=== PATIENT | male | born 1940 | race Caucasian/White ===

== ENCOUNTER 2017-07-25 18:41 | Inpatient (IN) | payer OTHER ==
--- NOTE | 2017-07-25 18:55 | CPEKG ---
Heart Rate: 91 RR Interval: 659 P-R Interval: 200 QRSD Interval: 134 QT Interval: 412 QTC Interval: 508 P Breda: 72 QRS Breda: 101 T Wave Breda: -1 EKG Severity - ABNORMAL ECG - EKG Impression: SINUS RHYTHM EKG Impression: RBBB AND LPFB EKG Impression: BORDERLINE ST DEPRESSION, LATERAL LEADS Electronically Signed By: Adam Estrada 26-Jul-2017 11:36:40
[2017-07-25] MEDS ORDERED: ALBUTEROL 3 ML DEYVIAL IH ONE (19:00)
[2017-07-25] MEDS ORDERED: NS 1,000 ML IV ONE (19:01)
--- NOTE | 2017-07-25 19:06 | EDPHY ---
HPI/HX/ROS/PE/MDM Narrative: CHIEF COMPLAINT: Diarrhea, cough HISTORY OF PRESENT ILLNESS: The patient is a pleasant 76 y/o male with a history of diabetes, hypertension, a pacemaker, and vertigo arriving via EMS from [facility] for diarrhea and cough, onset 2 days ago. He has had intractable diarrhea for the past 2 days. He has associated lightheadedness with near syncope. He denies bloody stool, dark and tarry stool, vomiting, fever , difficulty breathing, chest pain, abdominal pain, or any other associated symptoms. He denies history cardiac stents, CT, or PE. He had his influenza vaccine for this season. No fever, chills, chest pain, shortness of breath, palpitations, urinary complaints, headache. REVIEW OF SYSTEMS: Aside from elements discussed in the HPI, a comprehensive 10-point review of systems was reviewed and is negative. PAST MEDICAL HISTORY: Diabetes, pacemaker (unclear indication), hypertension, vertigo SOCIAL HISTORY: Lives at [facility], retired, has two kids VITAL SIGNS: Reviewed by me GENERAL: Well-developed, well-nourished, resting comfortably in no respiratory distress. HEENT: Atraumatic. Eyes: Conjunctival injection with matting in the eyelashes bilaterally, no icterus. Mouth: moist mucous membranes. No erythema or lesions. Neck: supple with no adenopathy. LUNGS: Bibasilar rales, worse on right, right midlung field rales, no wheezes, rhonchi. CARDIAC: Regular rate and rhythm, no rubs, murmurs or gallops. ABDOMEN: Soft, nontender, nondistended, bowel sounds normal. BACK: No CVA tenderness. EXTREMITIES: No trauma. No edema. Range of motion is normal throughout. NEURO: Alert and oriented, grossly nonfocal. SKIN: Warm and dry, no rash. PSYCHIATRIC: Normal mentation, no agitation. ED Course: 12-LEAD EKG: Please see the full report in [facility]. My interpretation: ST depression laterally and T wave inversion X-ray: Chest x-ray was obtained. I viewed the images myself on the PACS system. My interpretation of the images is: normal chest. The radiologist interpretation is normal chest. The patient presents with a cough and a two day history of intractable diarrhea. He denies bloody or dark and tarry stools. He denies fever. EMS noted an abnormal EKG. Plan for chest X-ray, EKG, and labs. He will likely have to be admitted for his diarrhea as it has been uncontrollable and his room at [facility] is covered in stool. EMS has already spoken with [facility] regarding this. 1951: The patient has an elevated troponin and an abnormal EKG. Screening for sepsis is negative with normal lactic, normal WBC, no history of fever, not tachycardic or hypotensive. Labs do demonstrate hemoconcentration and suspect patient dehydrates. Influenza A positive. Patient to be admitted with influenza A, diarrhea, dehydration, positive troponin, and ekg suggesting ischemia (most likely demand). I was in contact with the hospitalist service. They agree to admit. Dr Marcelo admitting, PCU MDM: Diff dx considered included influenza, dehydration, cardiac ischemia, ischemic bowel, gastroenteritis, gastrointestinal hemorrhage, electrolyte abnormalities. - Data Points Imaging Results: CXR: Impression: Stable chest. Dictated By: Mahesh Arita MD Imaging: I viewed and interpreted images myself Laboratory Results: Laboratory Results 07/25/17 19:00 07/25/17 19:00 Medications Given: Allopurinol (Allopurinol) 300 mg PO DAILY [facility] Stop: 01/22/18 08:59 Last Admin: 07/26/17 08:47 Dose: 300 mg Amlodipine/Benazepril HCl (Lotrel 5-20 Mg Capsule) 2 each PO DAILY [facility] Stop: 01/22/18 08:59 Last Admin: 07/26/17 08:46 Dose: 2 each Aspirin (Aspirin) 81 mg PO DAILY [facility] Stop: 01/22/18 08:59 Last Admin: 07/26/17 08:45 Dose: 81 mg Cholecalciferol (Vitamin D) 2,000 units PO DAILY [facility] Stop: 01/22/18 08:59 Last Admin: 07/26/17 08:47 Dose: 2,000 units Enoxaparin Sodium (Lovenox) 40 mg SC DAILY [facility] Stop: 01/22/18 08:59 Last Admin: 07/26/17 08:44 Dose: 40 mg Guaifenesin (Mucinex) 1,200 mg PO BID [facility] Stop: 01/21/18 21:14 Last Admin: 07/26/17 22:48 Dose: 1,200 mg HCTZ/Losartan Potassium (Hyzaar 50/12.5) 2 tab PO DAILY [facility] Stop: 01/22/18 08:59 Last Admin: 07/26/17 08:46 Dose: 2 tab Lactated Ringer's (Lr) 1,000 mls @ 100 mls/hr IV CONT [facility] Stop: 01/22/18 09:59 Last Admin: 07/26/17 22:49 Dose: 1,000 mls Insulin Glargine (Lantus Syringe) 50 units SC BID [facility] Stop: 01/22/18 08:59 Last Admin: 07/26/17 22:48 Dose: 50 units Insulin Human Lispro (Humalog Lispro) 0 unit SC TIDMEAL [facility] PRN Reason: Protocol Stop: 01/22/18 07:59 Last Admin: 07/26/17 18:32 Dose: 4 units Levothyroxine Sodium (Synthroid) 50 mcg PO DAILY06 [facility] Stop: 01/22/18 05:59 Last Admin: 07/27/17 06:25 Dose: 50 mcg Metoprolol Succinate (Toprol Xl) 200 mg PO DAILY [facility] Stop: 01/22/18 14:59 Last Admin: 07/26/17 16:08 Dose: 200 mg Oseltamivir Phosphate (Tamiflu) 75 mg PO BIDMEAL [facility] Stop: 07/31/17 08:01 Last Admin: 07/26/17 18:32 Dose: 75 mg Discontinued Medications Albuterol (Proventil Neb) 3 ml IH EDNOW ONE Stop: 07/25/17 19:01 Last Admin: 07/25/17 19:39 Dose: 3 ml Sodium Chloride (Ns) 1,000 mls @ 0 mls/hr IV ONCE ONE; Wide Open PRN Reason: Protocol Stop: 07/25/17 19:02 Last Admin: 07/25/17 19:41 Dose: 1,000 mls Microbiology Results: MICROBIOLOGY 07/25/17 19:50 Blood Blood Culture - Preliminary 07/25/17 19:25 Blood Blood Culture - Preliminary 07/25/17 20:25 Urine,Clean Catch Urine Culture - Preliminary Two Wirtz Types General Initial Vital Signs: Initial Vital Signs Temperature (C) 37.8 C 07/25/17 19:09 Heart Rate 91 07/25/17 19:09 Respiratory Rate 16 07/25/17 19:09 Blood Pressure 190/95 H 07/25/17 19:09 O2 Sat (%) 95 07/25/17 19:09 O2 Delivery Mode Nasal Cannula O2 (L/minute) 2 Allergies/Adverse Reactions: No Known Allergies Allergy (Verified 07/25/17 19:09) Home Medications: Medication Instructions Recorded Allopurinol [Allopurinol 300 MG 300 mg PO DAILY 12/18/14 (RX)] Amlodipine Besylate/Benazepril 1 each PO DAILY 12/18/14 [Amlodipine-Benazepril 10-40 mg] Aspirin [Aspirin 81mg (*)] 81 mg PO DAILY 12/18/14 Cholecalciferol Vit D3 [Vitamin D3 2,000 units PO DAILY 12/18/14 (*)] Insulin Lispro [humALOG LISPRO 100 20 unit SC TIDMEAL 12/18/14 units/ml (*)] Levothyroxine [Synthroid 50 mcg 50 mcg PO DAILY06 12/18/14 (*)] Losartan/Hydrochlorothiazide 1 each PO DAILY 12/18/14 [Losartan-Hctz 100-25 mg Tab] Metoprolol Succinate Xr [Toprol Xl 200 mg PO DAILY 12/18/14 100 mg (*)] [place]-3 Ethyl Est-Lovaza [Lovaza 1 2 gm PO BID 12/18/14 gm (*)] Simvastatin [Zocor] 40 mg PO DAILY 12/18/14 Multivitamins [Multivitamin (*)] 1 each PO DAILY #30 tab 12/20/14 Meclizine HCl [Meclizine HCl 25 mg 25 mg PO TID PRN #0 tab 05/22/16 (RX,OTC)] Insulin Glargine [Lantus 100 50 units SC BID 07/25/17 UNITS/ML (*)] Departure - Departure Disposition: [facility] In[facility] Acute Clinical Impression: Elevated troponin, Hypoxia, Cough, Influenza A Diarrhea Qualifiers: Diarrhea type: unspecified type Qualified Code(s): R19.7 - Diarrhea, unspecified Condition: Fair Report Scribed for: Felisha Jauregui Report Scribed by: Isaura Goldman Date of Report: 07/25/17 Time of Report: 19:44 Physician Review and Approval Statement: Portions of this note were transcribed by a electromedical equipment technician. I personally performed a history, physical exam, medical decision making, and confirmed accuracy of information the transcribed note.
[2017-07-25 19:12] LABS: PLATELET COUNT 134 10^3/uL (150-400)
[2017-07-25 19:21] LABS: INR 0.98 (0.83-1.16); PROTIME(PATIENT) 13.2 SEC (12.0-15.0)
[2017-07-25] MEDS ORDERED: ALBUTEROL 3 ML DEYVIAL ONE (19:39)
[2017-07-25] MEDS ORDERED: LOPERAMIDE HCL 2 MG CAP PO PRN (21:09)
[2017-07-25] MEDS ORDERED: ALBUTEROL 3 ML DEYVIAL IH PRN (21:10)
[2017-07-25] MEDS ORDERED: D50W 25 GM/50 ML VIAL IVP PRN (21:11)
[2017-07-25] MEDS ORDERED: D50W 25 GM/50 ML SYR IVP PRN (21:12)
[2017-07-25] MEDS ORDERED: D5W 1/2 NS W/ 20 KCl/L 1,000 ML IV SCH (21:15)
--- NOTE | 2017-07-25 21:31 | GHP ---
[f rep st] HISTORY AND PHYSICAL DATE OF ADMISSION: 07/25/2017 CHIEF COMPLAINT: Diarrhea. HISTORY OF PRESENT ILLNESS: This is a 76-year-old male with history of diabetes, hypertension, verti go and pacemaker placement, who presented to the emergency department with 3 days of diarrhea and cou gh. He denies any fevers or body aches. His stool is described as dark and non bloody. He denies a ny vomiting. PAST MEDICAL HISTORY: 1. Diabetes mellitus. 2. Hypertension. 3. Vertigo. 4. Gout. 5. Pacemaker placement. PAST SURGICAL HISTORY: 1. Pacemaker placement. 2. Hernia repair. MEDICATIONS: At home, reviewed. Refer to [facility] for details. ALLERGIES: No known drug allergies. SOCIAL HISTORY: The patient lives at the [facility]. He denies any alcohol, tobacco, or illicit drug use. FAMILY HISTORY: Reviewed and noncontributory. REVIEW OF SYSTEMS: Comprehensive 10-point review of systems was done and is negative, except for as mentioned in the HPI. PHYSICAL EXAM: VITAL SIGNS: Blood pressure 178/83, pulse of 90, respiratory rate 28, O2 saturation 95% on 2 L. GENERAL: No acute distress. HEAD: Normocephalic, atraumatic. EYES: PERRLA. Sclerae anicteric. MOUTH: Moist mucous membranes. NECK: Supple. No lymphadenopathy. CARDIOVASCULAR: S 1-S2. No JVD. No lower extremity edema. PULMONARY: Coarse breath sounds bilaterally with a hackin g cough. No respiratory distress. ABDOMEN: Soft, nontender, nondistended. No guarding or rebound tenderness. Normoactive bowel sounds. EXTREMITIES: No clubbing or cyanosis. NEURO: Cranial nerve s 2-12 grossly intact. No focal motor or sensory deficits. SKIN: Clear, no rashes. DIAGNOSTICS: Chest x-ray was reviewed and is negative for pneumonia. EKG, which I visualized and pe rsonally interpreted, shows sinus rhythm, rate 91 beats per minute with T-wave inversion in V2 throug h V4. WBCs 5.28, hemoglobin 17.9, hematocrit 52.6, platelets 134. Sodium 144, potassium 3.8, chlori de 102, BUN 19, creatinine 1.1, glucose 130, total bilirubin 3.2, conjugated bilirubin 2.7. Troponin was 0.048. Influenza PCR was positive for flu A. ASSESSMENT AND PLAN: This is a 76-year-old male presenting with: 1. Diarrhea most likely due to influenza versus other. Plan: The patient will be placed in contact isolation given his influenza. At this point, I do not think Tamiflu is warranted given the fact th at he is afebrile, and his symptoms started 3 days ago. Will send a stool pathogen panel for complet eness sake. 2. Acute hypoxemic respiratory failure due to influenza. Plan: Start Mucinex and recommend pulmona ry toilet. Will trial nebulizers. 3. Inverted T-waves in the anterior lateral leads in the setting of an indeterminate troponin. Plan : Will trend troponins and monitor. 4. The patient requests to be full code status. He will be admitted to the hospital under inpatient status since I suspect he will require hospitalization through 2 midnights. /[id number]/MODL
[2017-07-26] MEDS: LEVOTHYROXINE 50 MCG TAB PO SCH (06:20)
[2017-07-26 06:23] LABS: PLATELET COUNT 111 10^3/uL (150-400)
[2017-07-26] MEDS: INSULIN GLARGINE 100 UNITS/ML SYRINGE SC SCH ×2 (08:42→22:48)
[2017-07-26] MEDS: INSULIN LISPRO 100 UNIT/ML SC SCH ×3 (08:42→18:32)
[2017-07-26] MEDS: ENOXAPARIN 40 MG/0.4 ML SYR SC SCH (08:44)
[2017-07-26] MEDS: ASPIRIN 81 MG CHEWABLE TAB PO SCH (08:45)
[2017-07-26] MEDS: LOSARTAN/HCTZ 50/12.5 1 TAB PO SCH (08:46)
[2017-07-26] MEDS: guaiFENesin 600 MG TAB.ER PO SCH ×3 (08:46→22:48)
[2017-07-26] MEDS: AMLODIPINE BESYLATE 5/BENAZEPRIL 20MG 1 EACH CAP PO SCH (08:46)
[2017-07-26] MEDS: CHOLECALCIFEROL VIT D3 2,000 UNITS TAB/CAP PO SCH (08:47)
[2017-07-26] MEDS: ALLOPURINOL 300 MG TAB PO SCH (08:47)
--- NOTE | 2017-07-26 10:39 | PDMN ---
Medical Necessity Medical necessity: Pt meets IP criteria per MD; est los >2 mn for eval/tx of Influenza A w/diarrhea, acute hypoxemic respiratory failure & elevated troponin ; admit for further workup/monitoring, supportive care & therapies; hx diabetes , htn & pacer, per H&P & order 07/25/17
--- NOTE | 2017-07-26 12:56 | ASMTCASEMG ---
Living Arrangements What is your living Answers: Alone arrangement? Who do you live with? Type Of Residence What kind of residence do Answers: House you live in? Discharge Plan Comments Coordination Status Comments Notes: CM spoke w/ ILYA Dotson regarding d/c POC. Pt is a 76 y/o man admitted for diarrhea. PT is recommending home independent. Still awaiting OT recommendation. Pt will most likely d/c w/out any needs when medically stable. CM available for d/c needs. Plan: Independent Date Signed: 07/26/2017 12:56 PM Electronically Signed By:BRISA Knight
[2017-07-26] MEDS: LR 1,000 ML IV SCH ×2 (13:55→22:49)
[2017-07-26] MEDS ORDERED: NON-FORMULARY NEW DRUG (Simvastatin [Zocor] 40 MG) PO SCH (15:00)
[2017-07-26] MEDS: METOPROLOL SUCCINATE XR 100 MG TAB PO SCH (16:08)
--- NOTE | 2017-07-26 17:28 | HOSPPROG ---
Hospitalist Progress Note Assessment/Plan: DIAGNOSES: -acute influenza a infection -acute hypoxemic respiratory failure -diarrhea likely due to above currently resolved -Hemoccult-positive blood, but no anemia with hemoglobin 16 and no microcytosis ; suspect this is due to his a diarrheal illness and not a GI bleed per se but warrants ongoing monitoring and reassessment -uncontrolled hypertension -diabetes mellitus with overall reasonably good blood sugar control so far -indeterminate troponin elevations likely due to demand ischemia from all of the above PLANS: -Tamiflu is started -continue hydration -recheck hemoglobin -if blood pressure stay up at the levels of this morning will add antihypertensive -continue to monitor sugars and treat as indicated -did not feel further assessment of troponin elevations is warranted unless other cardiac issues indicate doing so -do not feel at this time he needs further GI workup unless evidence of more significant or persistent bleeding SUBJECTIVE: Still feels quite ill, coughing a lot, short of breath, weak Not nauseous or vomiting but no appetite No chest pain angina or other heart failure symptoms OBJECTIVE Vitals reviewed: Low-grade fever overnight, significant systolic hypertension, vitals otherwise okay Cans Vacuum Tester, my review: Sinus Exam: alert oriented skin warm dry color ok resps not labored lungs some mild rhonchi and wheeze heart regular abd soft nondistended nontender, bowel sounds present limbs warm, no edema iv site ok Laboratory data reviewed in detail including chemistries, troponins, CBC Respiratory pathogen panel with influenza a Blood cultures negative to date Objective: Vital Signs Temp Pulse Resp BP Pulse Ox 37.0 C 91 20 181/88 H 95 07/26/17 16:30 07/26/17 16:30 07/26/17 16:30 07/26/17 16:30 07/26/17 16:30 Laboratory Results 07/26/17 06:15 07/26/17 06:15 07/25/17 07/26/17 07/27/17 06:59 06:59 06:59 Intake Total 1400 250 Output Total 400 775 Balance 1000 -525 PT 13.2 SEC (12.0-15.0) 07/25/17 19:00 INR 0.98 (0.83-1.16) 07/25/17 19:00 - Time Spent With Patient Time Spent with Patient: greater than 35 minutes Time Spent with Patient: Greater than 35 minutes spent on this patients care, greater than 50% of time spent counseling, educating, and coordinating care regarding the above mentioned plan. ICD10 Worksheet Patient Problems: Problems Problem Status Onset Cough Acute Diarrhea Acute Elevated troponin Acute Hypoxia Acute Syncope Acute
[2017-07-26] MEDS: OSELTAMIVIR PHOSPHATE 75 MG CAP PO SCH (18:32)
[2017-07-27] MEDS: LEVOTHYROXINE 50 MCG TAB PO SCH (06:25)
[2017-07-27] MEDS ORDERED: ATORVASTATIN CALCIUM 20 MG TAB PO SCH (09:00)
[2017-07-27] MEDS: INSULIN LISPRO 100 UNIT/ML SC SCH ×2 (10:05→13:48)
[2017-07-27] MEDS: LR 1,000 ML IV SCH (10:27)
--- NOTE | 2017-07-27 11:38 | GDS ---
[f rep st] DISCHARGE SUMMARY DIAGNOSES: 1. Influenza A. 2. Diarrhea secondary to above. 3. Acute on chronic hypoxic respiratory failure due to above. 4. Hypertension. 5. Diabetes mellitus. 6. Indeterminate troponin. 7. Stool occult blood positive in the setting of diarrhea. HOSPITAL COURSE: 1. Influenza A with diarrhea and acute hypoxemic respiratory failure: [facility]. He was treated with IV hydration. Tamiflu was started on hospital day 1. 2. On hospital day 2, the patient states he is feeling better. He is no longer having any diarrhea. He is not having any fevers. PHYSICAL EXAM: VITAL SIGNS: On day of discharge, blood pressure 154/87, pulse 61, respiratory rate 19, O2 saturation 96% on 3 L, temperature afebrile. GENERAL: No acute distress. HEART: S1, S2. L UNGS: Clear. No wheezes or rales. ABDOMEN: Soft. EXTREMITIES: No edema. PERTINENT LABORATORY AND X-RAY DATA: Chest x-ray done 07/25/2017, refer to report. DISCHARGE MEDICATIONS: Please refer to discharge medication reconciliation in [facility] for details. DISCHARGE INSTRUCTIONS: The patient will be discharged from the hospital. He should follow up with his primary care provider. I should note that he had a stool occult blood that was positive. Routin e colon cancer screening should be discussed with the patient in the outpatient setting. /[id number]/MODL
[2017-07-27] MEDS: ENOXAPARIN 40 MG/0.4 ML SYR SC SCH (11:47)
[2017-07-27] MEDS: INSULIN GLARGINE 100 UNITS/ML SYRINGE SC SCH (11:47)
[2017-07-27] MEDS: AMLODIPINE BESYLATE 5/BENAZEPRIL 20MG 1 EACH CAP PO SCH (11:51)
[2017-07-27] MEDS: OSELTAMIVIR PHOSPHATE 75 MG CAP PO SCH (11:53)
[2017-07-27] MEDS: LOSARTAN/HCTZ 50/12.5 1 TAB PO SCH (11:53)
[2017-07-27] MEDS: METOPROLOL SUCCINATE XR 100 MG TAB PO SCH (11:53)
[2017-07-27] MEDS: CHOLECALCIFEROL VIT D3 2,000 UNITS TAB/CAP PO SCH (11:54)
[2017-07-27] MEDS: ALLOPURINOL 300 MG TAB PO SCH (11:54)
[2017-07-27] MEDS: guaiFENesin 600 MG TAB.ER PO SCH (11:54)
--- NOTE | 2017-07-27 11:54 | ASMTCMCOM ---
CM Note CM Note Notes: Cm spoke w/ Tere at the [facility] and provided updates. Therapies are clearing pt to go home w/out any needs at this time. CM spoke w/ daughter Nicole regarding d/c plans. Nicole will transport pt back home. CM available for changes. Plan: Independent at the [facility] Plan: Independent Date Signed: 07/27/2017 11:54 AM Electronically Signed By:BRISA Knight
[2017-07-27] MEDS: ASPIRIN 81 MG CHEWABLE TAB PO SCH (11:55)
[2017-07-27 12:16] VITALS: PULSE 60; RESP 18
[2017-07-27 15:53] VITALS: BP 142/67; TEMP 96.2; O2SAT 92
--- NOTE | 2017-07-28 10:07 | ASDISCHSUM ---
Discharge Information Plan Status:Home with No Needs Medically Cleared to Leave:07/26/2017 Discharge Date:07/27/2017 04:50 PM CM D/C Disposition: ADT D/C Disposition:Home, Routine, Self-Care Projected Discharge Date:07/27/2017 12:00 AM Transportation at D/C: Discharge Delay Reason: Follow-Up Date:07/27/2017 12:00 AM Discharge Slot: Final Diagnosis: Placement Information Patient Contact Information Contact Name:KEYONNA Relationship:Daughter Address:[address] City:[place] Alternate Phone: [facility]/Zip Code:[place] [address] Email: Financial Information Financial Class: Primary Plan Desc:MEDICARE INPATIENT Primary Plan Number:[id number] Secondary Plan Desc:[facility] Secondary Plan Number:[id number] Assessment Information [facility] Initial CM Assessment Living Arrangements What is your living Answers: Alone arrangement? Who do you live with? Type Of Residence What kind of residence do Answers: House you live in? Discharge Plan Comments Coordination Status Comments Notes: CM spoke w/ ILYA Dotson regarding d/c POC. Pt is a 76 y/o man admitted for diarrhea. PT is recommending home independent. Still awaiting OT recommendation. Pt will most likely d/c w/out any needs when medically stable. CM available for d/c needs. Plan: Independent Date Signed: 07/26/2017 12:56 PM Electronically Signed By:BRISA Knight [facility] CM Progress Note CM Note CM Note Notes: Cm spoke w/ Tere at the [facility] and provided updates. Therapies are clearing pt to go home w/out any needs at this time. CM spoke w/ daughter Nicole regarding d/c plans. Nicole will transport pt back home. CM available for changes. Plan: Independent at the [facility] Plan: Independent Date Signed: 07/27/2017 11:54 AM Electronically Signed By:BRISA Knight Intervention Information Intervention Type:*Incorrect Registration Date of Service:07/26/2017 10:42 AM Patient Type:Observation Staff Member:ILYA Brenner, Ekta Hours: Discipline: Severity: Comment: Intervention Type:*IM-Signed Date of Service:07/27/2017 02:03 PM Patient Type:Inpatient Staff Member:Jyoti Shearer Hours: Discipline: Severity: Comment:
== END 2017-07-27 16:50 | disposition home or self-care (01) | DRG 193 ==
LOC: EDUNIT# → EDBD → OBSVTOIN 21:08 → F2W 21:51
PROVIDERS: ADMIT Family Medicine; ATTEND Family Medicine
DX: J10.1 Influenza due to other identified influenza virus with other respiratory manifestations (principal); J10.2 Influenza due to other identified influenza virus with gastrointestinal manifestations; J96.01 Acute respiratory failure with hypoxia; E11.9 Type 2 diabetes mellitus without complications; I10 Essential (primary) hypertension; Z95.0 Presence of cardiac pacemaker; M10.9 Gout, unspecified
CPT/HCPCS: 97161-GP; 97165-GO; 97530-GP; 97535-GO; G8978-GP-CJ; G8979-GP-CI; G8987-GO-CJ; G8988-GO-CH; J1650; J1815

== ENCOUNTER 2018-01-20 18:49 | Inpatient (IN) | payer OTHER ==
[2018-01-20] MEDS ORDERED: MECLIZINE HCL 25 MG TAB PO ONE (19:03)
--- NOTE | 2018-01-20 19:03 | EDPHY ---
General Time Seen by Provider: 01/20/18 18:55 Narrative: CHIEF COMPLAINT: "Vertigo" HISTORY OF PRESENT ILLNESS: Patient presents with complaints of vertigo. He says the symptoms started today at 12:00 p.m.. He describes it as a spinning sensation. He felt very nauseated and vomited several times. No chest pain at any time. No loss of conscious. No shortness of breath. He has no headache or trauma. No previous history of stroke. Does have previous history of vertigo and has tried meclizine with no improvement today. No other associated complaints or modifying factors. REVIEW OF SYSTEMS: Ten systems reviewed and are negative unless otherwise noted in the HPI PCP: Dr. 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 Pacemaker placement SOCIAL HISTORY: Nonsmoker. Lives independently. He is 3 L insulin-dependent. FAMILY HISTORY: Noncontributory EXAMINATION General Appearance: Alert, no distress. Well-developed well-nourished Head: normocephalic, atraumatic Eyes: Pupils equal and round, no conjunctival pallor or injection. Horizontal nystagmus. No vertical nystagmus. ENT, Mouth: Mucous membranes moist Neck: Normal inspection, supple, non-tender Respiratory: Lungs are clear to auscultation Cardiovascular: Regular rate and rhythm Gastrointestinal: Obese Abdomen is soft and nontender Back: non-tender, no bony abnormalities Neurological: GCS 15. A&O, nonfocal, no pronator drift. Normal finger to nose. Strength is symmetric in all 4 limbs. No unilateral findings. NIH stroke scale 0 Skin: Warm and dry, no rash Extremities: Nontender, no pedal edema Psychiatric: Mood and affect normal DIFFERENTIAL DIAGNOSES: Including but not limited to hypertensive emergency, hypertensive urgency, hypertensive crisis, vertigo, ACS MDM: 7:05 p.m. Reported vertigo from 12:00 p.m. Today with markedly high systolic and diastolic blood pressures. No chest pain. No syncope. There is some vomiting with disease/spinning sensation. I have ordered cardiac laboratory studies, and the patient is already on a christian science practitioner. CT scan ordered. I will consult Dr. Kramer as the patient has not had his antihypertensive medications today and will likely need these now. He is awake alert no acute distress. 7:20 p.m. Patient case discussed with Dr. Kramer. He requests IV labetalol and will be discussed further. 7:40 p.m. Patient has received IV labetalol 20 min ago and I have re-evaluated him. His pressure has not changed. He still symptomatic. CT scan has been performed but not yet evaluated. Laboratory studies pending. 8:09 p.m. Patient's blood pressure is starting to respond to the labetalol. He still symptomatic. CT scan results are pending. 8:15 p.m. Case discussed with radiologist Dr. Medrano. CT scan is negative for acute findings. Negative for acute findings. Patient's blood pressure has improved to 189/98. He is awake and alert. Still has some dizziness. No chest pain. 8:20 p.m. Case discussed with hospitalist Dr. Palma. He will admit the patient is service. We discussed possibility of MRI, and I informed him that we were unable to ordered one due to his pacemaker. He is admitted stable condition with no further medications requested at this time. SUPERVISION: Patient was independently examined, but I discussed the case with my secondary supervising physician Dr. Kramer - Diagnostics Imaging Results: Imaging Impressions Chest X-Ray 01/20/18 18:56 Impression: Hypoventilatory chest with no acute findings. Head CT 01/20/18 19:06 Impression: 1. No acute intracranial findings. 2. Diffuse cerebral atrophy with periventricular and subcortical low attenuation consistent with chronic microvascular ischemic gliosis. Findings discussed with Adolfo Lopez PA-C on January 20, 2018 at 2013 hours. - History Smoking Status: Never smoked - Objective Vital Signs: Initial Vital Signs Temperature (C) 98.1 F 01/20/18 19:00 Heart Rate 88 01/20/18 19:00 Respiratory Rate 20 01/20/18 19:00 Blood Pressure 212/122 H 01/20/18 19:00 O2 Sat (%) 95 01/20/18 19:00 O2 Delivery Mode Nasal Cannula O2 (L/minute) 2 Allergies/Adverse Reactions: No Known Allergies Allergy (Verified 07/25/17 19:09) Home Medications: Medication Instructions Recorded Allopurinol [Allopurinol 300 MG 300 mg PO DAILY 12/18/14 (RX)] Aspirin [Aspirin 81mg (*)] 81 mg PO DAILY 12/18/14 Cholecalciferol Vit D3 [Vitamin D3 2,000 units PO DAILY 12/18/14 (*)] Insulin Lispro [humALOG LISPRO 100 20 unit SC TIDMEAL 12/18/14 units/ml (*)] Levothyroxine [Synthroid 50 mcg 50 mcg PO DAILY06 12/18/14 (*)] Losartan/Hydrochlorothiazide 1 each PO DAILY 12/18/14 [Losartan-Hctz 100-25 mg Tab] Metoprolol Succinate Xr [Toprol Xl 200 mg PO DAILY 12/18/14 100 mg (*)] [place]-3 Ethyl Est-Lovaza [Lovaza 1 2 gm PO BID 12/18/14 gm (*)] Simvastatin [Zocor] 40 mg PO DAILY 12/18/14 Multivitamins [Multivitamin (*)] 1 each PO DAILY #30 tab 12/20/14 Insulin Glargine [Lantus 100 46 units SC BID 07/25/17 UNITS/ML (*)] Laboratory Results: Laboratory Results 01/20/18 19:20 01/20/18 19:20 01/20/18 01/20/18 01/20/18 19:46 19:20 19:20 WBC RBC Hgb Hct MCV MCH MCHC RDW Plt Count MPV Neut % (Auto) Lymph % (Auto) [place] % (Auto) Eos % (Auto) Baso % (Auto) Nucleat RBC Rel Count Absolute Neuts (auto) Absolute Lymphs (auto) Absolute Monos (auto) Absolute Eos (auto) Absolute Basos (auto) Absolute Nucleated RBC Immature Gran % Immature Gran # PT 13.1 SEC SEC (12.0-15.0) INR 0.97 (0.83-1.16) APTT 26.3 SEC SEC (23.0-38.0) Sodium 146 mEq/L H mEq/L (135-145) Potassium 4.5 mEq/L mEq/L (3.3-5.0) Chloride 105 mEq/L mEq/L (97-110) Carbon Dioxide 25 mEq/l mEq/l (22-31) Anion Gap 16 mEq/L mEq/L (8-16) BUN 13 mg/dL mg/dL (7-23) Creatinine 0.9 mg/dL mg/dL (0.7-1.3) Estimated GFR > 60 Glucose 190 mg/dL H mg/dL (70-100) Calcium 9.8 mg/dL mg/dL (8.5-10.4) POC Troponin I 0.01 ng/mL ng/mL (0.00-0.08) NT-Pro-B Natriuret Pep 132 pg/mL pg/mL (0-450) Lipase 56 IU/L IU/L (23-300) 01/20/18 19:20 WBC 9.06 10^3/uL 10^3/uL (3.80-9.50) RBC 6.59 10^6/uL H 10^6/uL (4.40-6.38) Hgb 19.7 g/dL H g/dL (13.7-17.5) Hct 59.1 % H % (40.0-51.0) MCV 89.7 fL fL (81.5-99.8) MCH 29.9 pg pg (27.9-34.1) MCHC 33.3 g/dL g/dL (32.4-36.7) RDW 14.4 % % (11.5-15.2) Plt Count 203 10^3/uL 10^3/uL (150-400) MPV 10.0 fL fL (8.7-11.7) Neut % (Auto) 71.5 % % (39.3-74.2) Lymph % (Auto) 20.4 % % (15.0-45.0) [place] % (Auto) 6.0 % % (4.5-13.0) Eos % (Auto) 0.7 % % (0.6-7.6) Baso % (Auto) 1.0 % % (0.3-1.7) Nucleat RBC Rel Count 0.0 % % (0.0-0.2) Absolute Neuts (auto) 6.48 10^3/uL 10^3/uL (1.70-6.50) Absolute Lymphs (auto) 1.85 10^3/uL 10^3/uL (1.00-3.00) Absolute Monos (auto) 0.54 10^3/uL 10^3/uL (0.30-0.80) Absolute Eos (auto) 0.06 10^3/uL 10^3/uL (0.03-0.40) Absolute Basos (auto) 0.09 10^3/uL 10^3/uL (0.02-0.10) Absolute Nucleated RBC 0.00 10^3/uL 10^3/uL (0-0.01) Immature Gran % 0.4 % % (0.0-1.1) Immature Gran # 0.04 10^3/uL 10^3/uL (0.00-0.10) PT INR APTT Sodium Potassium Chloride Carbon Dioxide Anion Gap BUN Creatinine Estimated GFR Glucose Calcium POC Troponin I NT-Pro-B Natriuret Pep Lipase Medications Given: Hydralazine HCl (Apresoline) 10 mg IVP Q4HRS PRN PRN Reason: Sbp Greater Than 190 Stop: 07/19/18 20:40 Last Admin: 01/20/18 22:20 Dose: 10 mg Discontinued Medications Hydrochlorothiazide (Microzide) 12.5 mg PO ONCE ONE Stop: 01/20/18 23:01 Last Admin: 01/20/18 23:15 Dose: 12.5 mg Labetalol HCl (Trandate Injection) 10 mg IVP ONCE ONE Stop: 01/20/18 19:21 Last Admin: 01/20/18 19:25 Dose: 10 mg Labetalol HCl (Trandate Injection) 10 mg IVP ONCE ONE Stop: 01/20/18 19:43 Last Admin: 01/20/18 20:07 Dose: 10 mg Losartan Potassium (Cozaar) 25 mg PO ONCE ONE Stop: 01/20/18 23:01 Last Admin: 01/20/18 23:15 Dose: 25 mg Meclizine HCl (Meclizine Hcl) 25 mg PO EDNOW ONE Stop: 01/20/18 19:04 Last Admin: 01/20/18 19:25 Dose: 25 mg Metoprolol Tartrate (Lopressor) 50 mg PO ONCE ONE Stop: 01/20/18 22:53 Last Admin: 01/20/18 23:15 Dose: 50 mg Point of Care Test Results: Chemistry 01/20/18 19:46 POC Troponin I 0.01 ng/mL ng/mL (0.00-0.08) Departure - Departure Disposition: [facility] Acute Clinical Impression: Hypertensive emergency, Vertigo Condition: Good
[2018-01-20] MEDS ORDERED: ONDANSETRON 4 MG/2 ML VIAL ONE (19:10)
[2018-01-20] MEDS ORDERED: LABETALOL HCL 5 MG/ML 20 ML MDV IVP ONE ×2 (19:20→19:42)
[2018-01-20] MEDS ORDERED: LABETALOL HCL 5 MG/ML 20 ML MDV ONE (19:21)
--- NOTE | 2018-01-20 19:24 | CPEKG ---
Heart Rate: 73 RR Interval: 822 P-R Interval: 216 QRSD Interval: 158 QT Interval: 480 QTC Interval: 529 P Adin: 66 QRS Adin: -79 T Wave Adin: 115 EKG Severity - ABNORMAL ECG - EKG Impression: SINUS RHYTHM EKG Impression: RIGHT BUNDLE BRANCH BLOCK EKG Impression: LVH WITH IVCD AND SECONDARY REPOL ABNRM Electronically Signed By: Kalpesh Kramer 20-Jan-2018 20:51:03
[2018-01-20 19:27] LABS: PLATELET COUNT 203 10^3/uL (150-400)
[2018-01-20 19:39] LABS: INR 0.97 (0.83-1.16); PROTIME(PATIENT) 13.1 SEC (12.0-15.0)
[2018-01-20] MEDS ORDERED: ONDANSETRON DISINTEGRATING 4 MG TAB PO PRN (20:36)
[2018-01-20] MEDS ORDERED: ONDANSETRON 4 MG/2 ML VIAL IVP PRN (20:36)
[2018-01-20] MEDS ORDERED: ACETAMINOPHEN 325 MG TAB PO PRN (20:36)
[2018-01-20] MEDS ORDERED: D50W 25 GM/50 ML SYR IVP PRN (20:40)
[2018-01-20] MEDS ORDERED: hydrALAZINE 20 MG/ML VIAL IVP PRN (20:41)
[2018-01-20] MEDS ORDERED: MECLIZINE HCL 25 MG TAB PO PRN (20:42)
[2018-01-20] MEDS ORDERED: METOPROLOL TARTRATE 50 MG TAB PO ONE (22:52)
--- NOTE | 2018-01-20 22:58 | PDGENHP ---
History and Physical - Chief Complaint vertigo - History of Present Illness This is a 77 yo male with a hx of intermittent vertigo x several years who had vertigo symptoms starting this morning. He has not had a vertigo event in quite some time. Today his sx's were "very similar to past episodes". He describes it as a spinning sensation. He felt very nauseated and vomited several times. He tried Meclizine w/o improvement. He has a hx of HTN and MMP and he did not take his meds this morning. He presented to the E.D. and was found to have Vertigo and HTN urgency with BP in the 230's systolic. He was given more Meclizine with resolution of the vertigo. He was given Labetalol with mild improvement. He does not have an neurological deficits. He has never had a CVA. He is on a daily aspirin. His vertigo has resolved since being in the E.D. His BP remains very elevated. He has no vision deficits No chest pain at any time. No loss of conscious. No shortness of breath. He has no headache or trauma. No previous history of stroke. Does have previous history of vertigo and has tried meclizine with no improvement today. No other associated complaints or modifying factors. PCP: Dr. 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 Pacemaker placement SOCIAL HISTORY: Nonsmoker. Lives independently. He is 3 L insulin-dependent. FAMILY HISTORY: Noncontributory Head CT: negative Hgb: 19.7 History Information - Allergies/Home Medication List Allergies/Adverse Reactions: No Known Allergies Allergy (Verified 07/25/17 19:09) Home Medications: Allopurinol [Allopurinol 300 MG (RX)] 300 mg PO DAILY 12/18/14 [Last Taken 01/19] Aspirin [Aspirin 81mg (*)] 81 mg PO DAILY 12/18/14 [Last Taken 01/19/18] Cholecalciferol Vit D3 [Vitamin D3 (*)] 2,000 units PO DAILY 12/18/14 [Last Taken 01/19/18] Insulin Lispro [humALOG LISPRO 100 units/ml (*)] 20 unit SC TIDMEAL 12/18/14 [ Last Taken 01/19/18] Levothyroxine [Synthroid 50 mcg (*)] 50 mcg PO DAILY06 12/18/14 [Last Taken ] Losartan/Hydrochlorothiazide [Losartan-Hctz 100-25 mg Tab] 1 each PO DAILY 12/18 [Last Taken 01/19/18] Metoprolol Succinate Xr [Toprol Xl 100 mg (*)] 200 mg PO DAILY 12/18/14 [Last Taken 01/19/18] [place]-3 Ethyl Est-Lovaza [Lovaza 1 gm (*)] 2 gm PO BID 12/18/14 [Last Taken ] Simvastatin [Zocor] 40 mg PO DAILY 12/18/14 [Last Taken 01/19/18] Insulin Glargine [Lantus 100 UNITS/ML (*)] 46 units SC BID 07/25/17 [Last Taken 01/19/18] I have personally reviewed and updated: medical history, social history - Social History Smoking Status: Never smoked Review of Systems Review of Systems: ROS: 10pt was reviewed & negative except for what was stated in HPI & below Physical Exam Physical Exam: Temp Pulse Resp BP Pulse Ox 36.4 C 90 20 196/96 H 96 01/20/18 22:24 01/20/18 22:24 01/20/18 22:24 01/20/18 22:24 01/20/18 22:24 O2 (L/minute) 2 Constitutional: no apparent distress Eyes: PERRL Ears, Nose, Mouth, Throat: moist mucous membranes, hearing normal Cardiovascular: regular rate and rhythym, no murmur, rub, or gallop Respiratory: no respiratory distress, no rales or rhonchi, clear to auscultation Gastrointestinal: normoactive bowel sounds, soft, non-tender abdomen Genitourinary: no bladder fullness Skin: warm Musculoskeletal: full muscle strength Neurologic: AAOx3 Psychiatric: interacting appropriately, not anxious, not encephalopathic Lymph, Heme, Immunologic: No petechiae Lab Data & Imaging Review 01/20/18 19:20 01/20/18 19:20 WBC 9.06 10^3/uL (3.80-9.50) 01/20/18 19:20 RBC 6.59 10^6/uL (4.40-6.38) H 01/20/18 19:20 Hgb 19.7 g/dL (13.7-17.5) H 01/20/18 19:20 Hct 59.1 % (40.0-51.0) H 01/20/18 19:20 MCV 89.7 fL (81.5-99.8) 01/20/18 19:20 MCH 29.9 pg (27.9-34.1) 01/20/18 19:20 MCHC 33.3 g/dL (32.4-36.7) 01/20/18 19:20 RDW 14.4 % (11.5-15.2) 01/20/18 19:20 Plt Count 203 10^3/uL (150-400) 01/20/18 19:20 MPV 10.0 fL (8.7-11.7) 01/20/18 19:20 Neut % (Auto) 71.5 % (39.3-74.2) 01/20/18 19:20 Lymph % (Auto) 20.4 % (15.0-45.0) 01/20/18 19:20 [place] % (Auto) 6.0 % (4.5-13.0) 01/20/18 19:20 Eos % (Auto) 0.7 % (0.6-7.6) 01/20/18 19:20 Baso % (Auto) 1.0 % (0.3-1.7) 01/20/18 19:20 Nucleat RBC Rel Count 0.0 % (0.0-0.2) 01/20/18 19:20 Absolute Neuts (auto) 6.48 10^3/uL (1.70-6.50) 01/20/18 19:20 Absolute Lymphs (auto) 1.85 10^3/uL (1.00-3.00) 01/20/18 19:20 Absolute Monos (auto) 0.54 10^3/uL (0.30-0.80) 01/20/18 19:20 Absolute Eos (auto) 0.06 10^3/uL (0.03-0.40) 01/20/18 19:20 Absolute Basos (auto) 0.09 10^3/uL (0.02-0.10) 01/20/18 19:20 Absolute Nucleated RBC 0.00 10^3/uL (0-0.01) 01/20/18 19:20 Immature Gran % 0.4 % (0.0-1.1) 01/20/18 19:20 Immature Gran # 0.04 10^3/uL (0.00-0.10) 01/20/18 19:20 PT 13.1 SEC (12.0-15.0) 01/20/18 19:20 INR 0.97 (0.83-1.16) 01/20/18 19:20 APTT 26.3 SEC (23.0-38.0) 01/20/18 19:20 Sodium 146 mEq/L (135-145) H 01/20/18 19:20 Potassium 4.5 mEq/L (3.3-5.0) 01/20/18 19:20 Chloride 105 mEq/L (97-110) 01/20/18 19:20 Carbon Dioxide 25 mEq/l (22-31) 01/20/18 19:20 Anion Gap 16 mEq/L (8-16) 01/20/18 19:20 BUN 13 mg/dL (7-23) 01/20/18 19:20 Creatinine 0.9 mg/dL (0.7-1.3) 01/20/18 19:20 Estimated GFR > 60 01/20/18 19:20 Glucose 190 mg/dL (70-100) H 01/20/18 19:20 Calcium 9.8 mg/dL (8.5-10.4) 01/20/18 19:20 POC Troponin I 0.01 ng/mL (0.00-0.08) 01/20/18 19:46 NT-Pro-B Natriuret Pep 132 pg/mL (0-450) 01/20/18 19:20 Lipase 56 IU/L (23-300) 01/20/18 19:20 Assessment & Plan Assessment: #Hypertensive emergency (Acute) #Vertigo (Acute), likely BPV #IDDM #Hypothyroidism #PPM Plan: admit PCU telemetry the etiology of his HTN urgency is likely due to taking his daily meds today. In the differential would be post CVA HTN, however, he reports that his vertigo sx's were identical to previous ones and he has complete resolution of his symptoms at this time. He has no neurological deficits. He wants to continue taking his meds in the morning. At this time I'll give him his daily meds tonight at reduced doses and cover with Hydralazine PRN. He is unclear what his BP is at baseline. Will hold off on additional w/u such as MRI given his resolution of sx's and that he has a PPM. Meclizine PRN total critical care time mgmt this patient with BP in the 200's systolic is 45 minutes
[2018-01-20] MEDS ORDERED: LOSARTAN POTASSIUM 25 MG TAB PO ONE (23:00)
[2018-01-20] MEDS ORDERED: HYDROCHLOROTHIAZIDE 12.5 MG CAP PO ONE (23:00)
[2018-01-21 03:59] LABS: PLATELET COUNT 192 10^3/uL (150-400)
[2018-01-21] MEDS: LEVOTHYROXINE 50 MCG TAB PO SCH (06:54)
[2018-01-21] MEDS: INSULIN GLARGINE 100 UNITS/ML UNIT SC SCH ×2 (07:49→21:55)
[2018-01-21] MEDS: INSULIN LISPRO 100 UNIT/ML SC SCH ×6 (07:49→18:17)
[2018-01-21] MEDS: CHOLECALCIFEROL VIT D3 1,000 UNITS TAB PO SCH (07:50)
[2018-01-21] MEDS: METOPROLOL SUCCINATE XR 100 MG TAB PO SCH (07:50)
[2018-01-21] MEDS: OMEGA-3 ETHYL EST-LOVAZA 1 GM CAP PO SCH ×2 (07:51→21:50)
[2018-01-21] MEDS: MULTIVITAMINS 1 EACH TAB PO SCH (07:51)
[2018-01-21] MEDS: ATORVASTATIN CALCIUM 20 MG TAB PO SCH (07:51)
[2018-01-21] MEDS: LOSARTAN/HCTZ 50/12.5 1 TAB PO SCH (07:51)
[2018-01-21] MEDS: ALLOPURINOL 300 MG TAB PO SCH (07:51)
[2018-01-21] MEDS: ASPIRIN 81 MG CHEWABLE TAB PO SCH (07:51)
--- NOTE | 2018-01-21 08:15 | PDMN ---
Medical Necessity Medical necessity: Pt meets IP criteria per MD; est los >2 mn for eval/tx of hypertensive emergency w/BP of 212/122, HR 152, vertigo, N/V; admit for further workup/cardiac monitoring, med management & therapies; per H&P & order 01/20/18
[2018-01-21] MEDS ORDERED: MECLIZINE HCL 25 MG TAB PO PRN (08:26)
[2018-01-21 11:09] LABS: PLATELET COUNT 199 10^3/uL (150-400)
[2018-01-21] MEDS ORDERED: ALPRAZolam 0.25 MG TAB PO ONE (11:10)
--- NOTE | 2018-01-21 13:48 | ASMTCMCOM ---
CM Note CM Note Notes: 01/21/2018 Case Management Note Discussed pt during rounds this morning. Met w/pt and daughter Nicole [phone]. Nicole lives in [place]. Pt daughter Patricia lives in [place] near [place]. Pt admitted for vertigo and hypertensive emergency. Pt has been evaluated by OT and PT. PT recommending 24 hour supervision. 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 Pt lives at the [facility]. He has 3 meals a day plus light housekeeping. Pt pays for stand by assist 3 times a day to monitor his medication administration. Per pt, unskilled staff is not allowed to assist pt with showers or medication dosing. Pt uses O2 at baseline. [employer] provides both a concentrator and O2 tanks. Pt indicates he does not use O2 regularly. Per RN, PT and OT to re evaluate pt tomorrow to determine if SNF rehab is necessary. Family is unable to provide 24/7 care. The [facility] does not provide 24 hour staff onsite. Case Management d/c poc: to be determined. Case Management to follow. Date Signed: 01/21/2018 01:48 PM Electronically Signed By:Sivan Dejesus RN
--- NOTE | 2018-01-21 18:23 | HOSPPROG ---
Hospitalist Progress Note Assessment/Plan: Assessment: 77-year-old male presents with acute benign positional paroxysmal vertigo and hypertensive urgency Plan: 1. Suspected benign positional paroxysmal vertigo. Acute worsening, new problem this provider, further workup indicated. 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 given that he has previously experienced the symptoms, he has been seen by ENT for them, and he has been prescribed meclizine in the past as needed -that being said, the patient experienced acute worsening of his symptoms which were so pervasive that he was unable to tolerate his oral medications and resulted in inability to safely ambulate -physical therapy assessment the patient this morning demonstrated that he was experiencing significant gait instability, potentially listing unilaterally, and given the pervasive nature of his symptoms, it is prudent to get carotid and vertebral artery ultrasounds to rule out any circulation defect -I would also recommend getting an MRI, but after further investigation, the patient's pacemaker is not MRI compatible -his noncontrast head CT did not demonstrate any recent or past CVA -continue meclizine as needed, add Zofran as needed -I do suspect the patient has inner ear pathology and I highly recommend that he follow up with his primary ENT 2. Hypertensive urgency. Acute worsening of chronic hypertension, secondary to inability to tolerate oral intake and home medications -patient was treated aggressively with IV antihypertensives last night given that it was unclear whether the patient's symptoms were related to hypertension -I suspect that the symptoms were not related to hypertension but the hypertension was a direct result of him not being able to tolerate his oral medications -we have re-initiated his home medications and his systolic blood pressure has safely down trended into the 170s, continue metoprolol, losartan, hydrochlorothiazide -monitor his blood pressure closely and up titrate home medications if needed -chest x-ray demonstrates hypoventilation but no congestive heart failure, personally interpreted, and his BNP is within normal limits 3. Serum impaction. Right ear, use Debrox, gauge effect 4. Leukocytosis. Unclear etiology, most likely stress response, downtrending, troponin remains negative, D-dimer negative, continue monitor Diet. Regular Prophylaxis. High risk patient, SCDs, hold pharmacologic given his elevated blood pressure Code. Full Disposition. Anticipated discharge is uncertain, anticipated length stay remains greater than 48 hr for reasonable medical necessity including uncontrolled hypertension, ongoing gait instability rendering him unsafe to ambulate, unsafe to care for self at home, requiring ongoing therapy and reassessment. Subjective: Patient reports that he feels well, no headache, no chest pain, physical therapist reports that he has significant gait instability and is unsafe to ambulate independently Objective: Vital Signs Temp Pulse Resp BP Pulse Ox 36.7 C 61 20 177/87 H 95 01/21/18 16:00 01/21/18 16:00 01/21/18 16:00 01/21/18 16:00 01/21/18 16:00 Laboratory Results 01/21/18 11:02 01/21/18 03:10 01/20/18 01/21/18 01/22/18 05:59 05:59 05:59 Intake Total 150 820 Output Total 300 1000 Balance -150 -180 PT 13.1 SEC (12.0-15.0) 01/20/18 19:20 INR 0.97 (0.83-1.16) 01/20/18 19:20 - Physical Exam Constitutional: no apparent distress, not in pain, obese, No uncomfortable Ears, Nose, Mouth, Throat: other (Right ear serum impaction with clear ear drum barely visible past the blockage, left ear with very minimal serum in comma eardrums clear, no fluid under the tympanic membrane) Cardiovascular: regular rate and rhythym, no murmur, rub, or gallop, No irregularly irregular, No tachycardia, No edema Respiratory: no respiratory distress, no rales or rhonchi, clear to auscultation Gastrointestinal: normoactive bowel sounds, soft, non-tender abdomen, no palpable masses Neurologic: AAOx3, sensation intact bilaterally, CN II-XII Intact, No weakness ( Motor strength 5/5 bilateral upper and lower extremities), No facial droop Psychiatric: interacting appropriately, not anxious, not encephalopathic, thought process linear ICD10 Worksheet Patient Problems: Problems Problem Status Onset Hypertensive emergency Acute Vertigo Acute Cough Acute Diarrhea Acute Elevated troponin Acute Hypoxia Acute Influenza A Acute Syncope Acute
[2018-01-21] MEDS: CARBAMIDE PEROXIDE 15 ML OTIC.BTL RTEAR SCH ×2 (21:49→22:02)
[2018-01-22 04:17] LABS: PLATELET COUNT 186 10^3/uL (150-400)
[2018-01-22] MEDS: LEVOTHYROXINE 50 MCG TAB PO SCH (05:30)
[2018-01-22] MEDS: INSULIN LISPRO 100 UNIT/ML SC SCH ×6 (07:55→17:37)
[2018-01-22] MEDS: ALLOPURINOL 300 MG TAB PO SCH (07:59)
[2018-01-22] MEDS: ATORVASTATIN CALCIUM 20 MG TAB PO SCH ×2 (08:00→19:46)
[2018-01-22] MEDS: MULTIVITAMINS 1 EACH TAB PO SCH (08:00)
[2018-01-22] MEDS: CHOLECALCIFEROL VIT D3 1,000 UNITS TAB PO SCH (08:00)
[2018-01-22] MEDS: LOSARTAN/HCTZ 50/12.5 1 TAB PO SCH (08:00)
[2018-01-22] MEDS: METOPROLOL SUCCINATE XR 100 MG TAB PO SCH (08:00)
[2018-01-22] MEDS: OMEGA-3 ETHYL EST-LOVAZA 1 GM CAP PO SCH ×2 (08:00→19:45)
[2018-01-22] MEDS: ASPIRIN 81 MG CHEWABLE TAB PO SCH (08:00)
[2018-01-22] MEDS: CARBAMIDE PEROXIDE 15 ML OTIC.BTL RTEAR SCH ×2 (08:02→21:17)
[2018-01-22] MEDS: INSULIN GLARGINE 100 UNITS/ML UNIT SC SCH ×2 (09:26→21:17)
--- NOTE | 2018-01-22 16:35 | ASMTCMCOM ---
CM Note CM Note Notes: Pts case discussed in tx rounds. Dr. Fox is recommending SNF. CM met w/ pt for dispo planning. Pt is not interested in SNF. Pt would like to d/c home without any needs. PT is recommending [facility]. Pt reports that he wants to drive to his PT appointments. CM spoke to both of pts daughters and they are both on board w/ him going to a SNF. CM provided senior blue book. CM to follow. Plan: TBD Date Signed: 01/22/2018 04:35 PM Electronically Signed By:BRISA Knight
--- NOTE | 2018-01-22 16:58 | ASMTCMCOM ---
CM Note CM Note Notes: CM met w/ Nicole, arik for dispo planning. CM relayed the recommendations from therapies and MD. Nicole will talk pt into going to a SNF. Nicole would like referrals made to [facility], [facility] and [facility]. Referrals sent. CM completed non triggering PASRR. CM to follow. Plan: TBD Date Signed: 01/22/2018 04:58 PM Electronically Signed By:BRISA Knight
--- NOTE | 2018-01-22 17:33 | HOSPPROG ---
Hospitalist Progress Note Assessment/Plan: Assessment: 77-year-old male presents with acute benign positional paroxysmal vertigo, hypertensive urgency, and acute worsening of chronic gait instability Plan: 1. Suspected benign positional paroxysmal vertigo. Acute worsening, pervasive symptoms on presentation, now stabilized -patient has a presumed diagnosis of BPPV given that he has previously experienced the symptoms, he has been seen by ENT for them, and he has been prescribed meclizine in the past as needed -continue meclizine as needed, added Zofran as needed 2. Hypertensive urgency. Acute worsening of chronic hypertension, secondary to inability to tolerate oral intake and home medications from BPPV symptoms -re-initiated his home medications and his systolic blood pressure has remained in the 170s -continue metoprolol, losartan, hydrochlorothiazide at home dosages, added amlodipine 2.5mg 01/22 -monitor his blood pressure closely and up titrate home medications if needed 3. Serum impaction. Right ear, used Debrox, patient reports significant improvement in hearing 4. Gait instability. Acute worsening of chronic issue, patient believes his gait is steady but PT/OT assessments reveal otherwise and recommend / care -counseled patient extensively that he is currently unsafe to DC back to independent living at [facility], and that SNF rehab is recommended -have also advised his daughter to look into Asst Living situation at [facility], since he is likely to benefit from this level of care once he reconditions at SNF/rehab -patient has been oscillating all day whether he will accept SNF/rehab or insist on going back to independent living, and he has capacity to make the decision to go back to independent living, but it would be AMA due to the unsafe nature and he would need to sign-out AMA if he chooses to make this discharge decision Diet. Regular Prophylaxis. High risk patient, lovenox 40 Code. Full Disposition. Anticipated discharge 01/23, w/ ongoing gait instability rendering him unsafe to ambulate, unsafe to care for self at home, requiring ongoing therapy and reassessment and likely SNF/rehab. Subjective: patient initially very agreeable to SNF/rehab, then wanting to go home; now calmer and more agreeable w/ daughter present Objective: Vital Signs Temp Pulse Resp BP Pulse Ox 36.4 C 61 12 134/65 H 91 L 01/22/18 16:26 01/22/18 16:26 01/22/18 16:26 01/22/18 16:26 01/22/18 16:26 Laboratory Results 01/22/18 03:14 01/22/18 03:14 01/21/18 01/22/18 01/23/18 05:59 05:59 05:59 Intake Total 150 820 Output Total 300 1725 955 Balance -150 -905 -955 PT 13.1 SEC (12.0-15.0) 01/20/18 19:20 INR 0.97 (0.83-1.16) 01/20/18 19:20 - Time Spent With Patient Time Spent with Patient: greater than 35 minutes Time Spent with Patient: Greater than 35 minutes spent on this patients care, greater than 50% of time spent counseling, educating, and coordinating care regarding the above mentioned plan. - Pending Discharge Pending Discharge Within 24 Hours: Yes Pending Discharge Date: 01/23/18 Pending Discharge Time: 11:00 - Physical Exam Constitutional: no apparent distress, not in pain, obese, No uncomfortable Cardiovascular: regular rate and rhythym, no murmur, rub, or gallop, other ( occasional ectopic beat), No tachycardia Respiratory: no respiratory distress, no rales or rhonchi, clear to auscultation Gastrointestinal: normoactive bowel sounds, soft, non-tender abdomen, no palpable masses Neurologic: AAOx3, sensation intact bilaterally, CN II-XII Intact, No weakness Psychiatric: interacting appropriately, not anxious, not encephalopathic, thought process linear, poor insight ICD10 Worksheet Patient Problems: Problems Problem Status Onset Syncope Acute Elevated troponin Acute Diarrhea Acute Hypoxia Acute Cough Acute Influenza A Acute Hypertensive emergency Acute Vertigo Acute
[2018-01-22] MEDS: ENOXAPARIN 40 MG/0.4 ML SYR SC SCH (19:46)
[2018-01-23] MEDS: LEVOTHYROXINE 50 MCG TAB PO SCH (05:34)
[2018-01-23] MEDS: ALLOPURINOL 300 MG TAB PO SCH (08:45)
[2018-01-23] MEDS: CHOLECALCIFEROL VIT D3 1,000 UNITS TAB PO SCH (08:46)
[2018-01-23] MEDS: METOPROLOL SUCCINATE XR 100 MG TAB PO SCH (08:46)
[2018-01-23] MEDS: LOSARTAN/HCTZ 50/12.5 1 TAB PO SCH (08:46)
[2018-01-23] MEDS: ASPIRIN 81 MG CHEWABLE TAB PO SCH (08:46)
[2018-01-23] MEDS: ENOXAPARIN 40 MG/0.4 ML SYR SC SCH (08:47)
[2018-01-23] MEDS: MULTIVITAMINS 1 EACH TAB PO SCH (08:47)
[2018-01-23] MEDS: OMEGA-3 ETHYL EST-LOVAZA 1 GM CAP PO SCH ×2 (08:47→22:06)
[2018-01-23] MEDS: INSULIN LISPRO 100 UNIT/ML SC SCH ×6 (08:48→17:34)
[2018-01-23] MEDS: CARBAMIDE PEROXIDE 15 ML OTIC.BTL RTEAR SCH ×2 (08:48→22:10)
[2018-01-23] MEDS: INSULIN GLARGINE 100 UNITS/ML UNIT SC SCH ×2 (08:52→22:06)
--- NOTE | 2018-01-23 09:53 | HOSPPROG ---
Hospitalist Progress Note Assessment/Plan: # BPPV - resolved - cont meclizine # hypertensive urgency - resolved - cont norvasc, hyzaar, metop # cerumen impaction - improved s/p debrox # DM2 - cont glargine 46 bid - cont lispro 20 tidmeal + ssi # ppm # gout - allopurinol # hld - lipitor # hypothyroid - synthroid # debility/gait instability - likely will need short SNF stay, tomorrow Subjective: no acute events; denies CP/SOB/N/V Objective: Vital Signs Temp Pulse Resp BP Pulse Ox 36.8 C 62 18 148/82 H 94 01/23/18 07:39 01/23/18 07:39 01/23/18 07:39 01/23/18 07:39 01/23/18 07:39 Laboratory Results 01/22/18 03:14 01/22/18 03:14 01/22/18 01/23/18 01/24/18 05:59 05:59 05:59 Intake Total 820 370 Output Total 1725 1275 Balance -905 -905 PT 13.1 SEC (12.0-15.0) 01/20/18 19:20 INR 0.97 (0.83-1.16) 01/20/18 19:20 chart reviewed CTH reviewed ECG reviewed - Physical Exam Constitutional: no apparent distress, appears nourished Cardiovascular: regular rate and rhythym, no murmur, rub, or gallop, edema ( trace bilat LE) Respiratory: no respiratory distress, no rales or rhonchi, clear to auscultation Gastrointestinal: soft, non-tender abdomen, no palpable masses ICD10 Worksheet Patient Problems: Problems Problem Status Onset Hypertensive emergency Acute Vertigo Acute Cough Acute Diarrhea Acute Elevated troponin Acute Hypoxia Acute Influenza A Acute Syncope Acute
--- NOTE | 2018-01-23 12:05 | ASMTCMCOM ---
CM Note CM Note Notes: [facility] and [facility] has accepted pt. [facility] does not have a bed. CM communicated this information to Nicole, pts daughter. Nicole would like pt to go to [facility]. Updates sent to [facility]. Pts case discussed w/ Dr. Ivory and ILYA Arzate. CM to follow. Plan: [facility] Date Signed: 01/23/2018 12:04 PM Electronically Signed By:BRISA Knight
[2018-01-23] MEDS: ATORVASTATIN CALCIUM 20 MG TAB PO SCH (22:07)
[2018-01-24] MEDS: LEVOTHYROXINE 50 MCG TAB PO SCH (06:18)
[2018-01-24] MEDS: INSULIN LISPRO 100 UNIT/ML SC SCH ×4 (09:27→12:40)
[2018-01-24] MEDS: LOSARTAN/HCTZ 50/12.5 1 TAB PO SCH (09:28)
[2018-01-24] MEDS: INSULIN GLARGINE 100 UNITS/ML UNIT SC SCH (09:29)
[2018-01-24] MEDS: ENOXAPARIN 40 MG/0.4 ML SYR SC SCH (09:29)
[2018-01-24] MEDS: MULTIVITAMINS 1 EACH TAB PO SCH (09:29)
[2018-01-24] MEDS: ASPIRIN 81 MG CHEWABLE TAB PO SCH (09:29)
[2018-01-24] MEDS: CHOLECALCIFEROL VIT D3 1,000 UNITS TAB PO SCH (09:29)
[2018-01-24] MEDS: ALLOPURINOL 300 MG TAB PO SCH (09:29)
[2018-01-24] MEDS: OMEGA-3 ETHYL EST-LOVAZA 1 GM CAP PO SCH (09:29)
[2018-01-24] MEDS: METOPROLOL SUCCINATE XR 100 MG TAB PO SCH (09:29)
[2018-01-24] MEDS: CARBAMIDE PEROXIDE 15 ML OTIC.BTL RTEAR SCH (09:33)
[2018-01-24 11:37] VITALS: BP 128/77
--- NOTE | 2018-01-24 11:53 | PDIAF ---
- Diagnosis Diagnosis: Vertigo Code Status: Full Code - Medication Management Discharge Medications: Medications to Continue on Transfer Allopurinol [Allopurinol 300 MG (RX)] 300 mg PO DAILY 12/18/14 [Last Taken 01/19] Aspirin [Aspirin 81mg (*)] 81 mg PO DAILY 12/18/14 [Last Taken 01/19/18] Cholecalciferol Vit D3 [Vitamin D3 (*)] 2,000 units PO DAILY 12/18/14 [Last Taken 01/19/18] Insulin Lispro [humALOG LISPRO 100 units/ml (*)] 20 unit SC TIDMEAL 12/18/14 [ Last Taken 01/19/18] Levothyroxine [Synthroid 50 mcg (*)] 50 mcg PO DAILY06 12/18/14 [Last Taken ] Losartan/Hydrochlorothiazide [Losartan-Hctz 100-25 mg Tab] 1 each PO DAILY 12/18 [Last Taken 01/19/18] Metoprolol Succinate Xr [Toprol Xl 100 mg (*)] 200 mg PO DAILY 12/18/14 [Last Taken 01/19/18] [place]-3 Ethyl Est-Lovaza [Lovaza 1 gm (*)] 2 gm PO BID 12/18/14 [Last Taken ] Simvastatin [Zocor] 40 mg PO DAILY 12/18/14 [Last Taken 01/19/18] Multivitamins [Multivitamin (*)] 1 each PO DAILY #30 tab 12/20/14 [Last Taken ] Insulin Glargine [Lantus 100 UNITS/ML (*)] 46 units SC BID 07/25/17 [Last Taken 01/19/18] Meclizine HCl [Meclizine HCl 25 mg (RX,OTC)] 12.5 - 25 mg PO Q6 PRN tab [Last Taken Unknown] amLODIPine BESYLATE [Norvasc 2.5 mg (*)] 2.5 mg PO DAILY tab 01/24/18 [Last Taken Unknown] Discharge Medications: Refer to the Discharge Home Medication list for PRN reason. - Orders Services needed: Certified [employer], Physical Therapy, Occupational Therapy Isolation Type: None - Follow Up Care Current Providers and Referrals: Patient,NotPresent [Unknown] - As per Instructions
--- NOTE | 2018-01-24 12:00 | ASMTLACE ---
LACE Length of stay for Answers: 3 days current admission Acuity / Level of Answers: Yes Care: Did the patient have an inpatient admission? Comorbidities - select Answers: Diabetes (uncontrolled or all that apply controlled) Other Notes: HTN, pacemaker, gout, d ysl ipidemia, vertigo # of Emergency department Answers: 1-2 visits in the last 6 months Score: 9 Date Signed: 01/24/2018 11:59 AM Electronically Signed By:Sivan Dejesus RN
--- NOTE | 2018-01-24 12:03 | ASDISCHSUM ---
Discharge Information Plan Status:SNF Medically Cleared to Leave:01/24/2018 Discharge Date:01/24/2018 CM D/C Disposition:Alf Facility ADT D/C Disposition:Alf Facility Projected Discharge Date:01/24/2018 11:00 AM Transportation at D/C:Wheelchair Van Discharge Delay Reason: Follow-Up Date:01/24/2018 11:00 AM Discharge Slot: Final Diagnosis: Placement Information Referral Type:*Mcfp/SNF Referral ID:[id number] Provider Name:[facility] Address 1:[address] Address 2: City:[place] Selection Factors: State:[place] Patient Contact Information Contact Name:KEYONNA Relationship:Daughter Address:[address] City:[place] Alternate Phone: State/Zip Code:[place] [address] Email: Financial Information Financial Class:Medicare Primary Plan Desc:MEDICARE INPATIENT Primary Plan Number:[id number] Secondary Plan Desc:[facility] Secondary Plan Number:[id number] Assessment Information LACE LACE Length of stay for Answers: 3 days current admission Acuity / Level of Answers: Yes Care: Did the patient have an inpatient admission? Comorbidities - select Answers: Diabetes (uncontrolled or all that apply controlled) Other Notes: HTN, pacemaker, gout, d ysl ipidemia, vertigo # of Emergency department Answers: 1-2 visits in the last 6 months Score: 9 Date Signed: 01/24/2018 11:59 AM Electronically Signed By:Sivan Dejesus RN [facility] CM Progress Note CM Note CM Note Notes: 01/21/2018 Case Management Note Discussed pt during rounds this morning. Met w/pt and daughter Nicole [phone]. Nicole lives in [place]. Pt daughter Patricia lives in [place] near [place]. Pt admitted for vertigo and hypertensive emergency. Pt has been evaluated by OT and PT. PT recommending 24 hour supervision. 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 Pt lives at the [facility]. He has 3 meals a day plus light housekeeping. Pt pays for stand by assist 3 times a day to monitor his medication administration. Per pt, unskilled staff is not allowed to assist pt with showers or medication dosing. Pt uses O2 at baseline. [employer] provides both a concentrator and O2 tanks. Pt indicates he does not use O2 regularly. Per RN, PT and OT to re evaluate pt tomorrow to determine if SNF rehab is necessary. Family is unable to provide 24/ care. The [facility] does not provide 24 hour staff onsite. Case Management d/c poc: to be determined. Case Management to follow. Date Signed: 01/21/2018 01:48 PM Electronically Signed By:Sivan Dejesus RN [facility] ENEDINA Progress Note CM Note CM Note Notes: Pts case discussed in tx rounds. Dr. Fox is recommending SNF. CM met w/ pt for dispo planning. Pt is not interested in SNF. Pt would like to d/c home without any needs. PT is recommending [facility]. Pt reports that he wants to drive to his PT appointments. CM spoke to both of pts daughters and they are both on board w/ him going to a SNF. CM provided senior blue book. CM to follow. Plan: TBD Date Signed: 01/22/2018 04:35 PM Electronically Signed By:BRISA Knight [facility] Progress Note CM Note CM Note Notes: ENEDINA met w/ Nicole, daughter for dispo planning. CM relayed the recommendations from therapies and MD. Nicole will talk pt into going to a SNF. Nicole would like referrals made to [facility] and [facility]. Referrals sent. ENEDINA completed non triggering PASRR. CM to follow. Plan: TBD Date Signed: 01/22/2018 04:58 PM Electronically Signed By:BRISA Knight [facility] ENEDINA Progress Note CM Note CM Note Notes: [facility] and [facility] has accepted pt. [facility] not [facility] a bed. CM communicated this information to Nicole, pts daughter. Nicole would like pt to go to [facility]. Updates sent to [facility]. Pts case discussed w/ Dr. Ivory and ILYA Arzate. CM to follow. Plan: [facility] Date Signed: 01/23/2018 12:04 PM Electronically Signed By:BRISA Knight Case Management Discharge Plan Note Case Management Discharge Discharge Order Complete? Answers: Yes Patient to Obtain Answers: Other Notes: [facility] Medications Transportation Arranged Answers: Other Notes: [facility] arranged transport with [facility] will Pick (Date 01/24/2018 01:00 PM & Time) Faxed Final Orders Answers: Yes Agency/Facility Transfer Answers: Yes Report Printed & Faxed to Receiving Agency Discharge Comments Notes: 01/24/2018 Case Management Note Pt to d/c to [facility]. Transport arranged by [facility] with [facility]. Faxed orders. Notified RN of report phone number. Date Signed: 01/24/2018 12:02 PM Electronically Signed By:Sivan Dejesus RN Intervention Information
--- NOTE | 2018-01-24 12:16 | GDS ---
[f rep st] DISCHARGE SUMMARY ALL DIAGNOSES: 1. Benign paroxysmal positional vertigo. 2. Hypertensive urgency. 3. Cerumen impaction. 4. Diabetes mellitus type 2. 5. Pacemaker. 6. Gout. 7. Hyperlipidemia. 8. Hypothyroid. 9. Debility and gait instability. HOSPITAL COURSE: This is a 77-year-old man who presented extremely hypertensive with blood pressure as high as 212/122 with vertigo. He had a head CT, which showed nothing acute. He had carotid Doppl ers which showed no significant stenosis. He has had vertigo before. Symptoms were very consistent with this. It improved significantly with meclizine. Notably, he also had significant hypertension. This was probably progression of his essential hypertension. Certainly possible that his severe hy pertension triggered his neurologic symptoms as well. Low-dose amlodipine has been added to his prev ious regimen. He will be discharged on amlodipine 2.5 mg, Hyzaar 50/12.5 mg and metoprolol 200 mg da [facility]. Blood pressures have been much better controlled over the past few days. Blood pressure on dis charge is 128/77. He has a history of diabetes. He has been taking his glargine. Blood sugars have been well controlled. He also takes lispro with meals. BILLING: I spent more than 30 minutes on the day of discharge coordinating care. DISPOSITION: He is discharged to [facility] in stable condition. /[id number]/MODL
== END 2018-01-24 13:25 | DRG 149 ==
LOC: EDUNIT# → F2W 21:50
PROVIDERS: ADMIT Family Medicine; ATTEND Student in an Organized Health Care Education/Training Program
DX: H81.10 Benign paroxysmal vertigo, unspecified ear (principal); I16.0 Hypertensive urgency; R26.9 Unspecified abnormalities of gait and mobility; H61.21 Impacted cerumen, right ear; E11.9 Type 2 diabetes mellitus without complications; E03.9 Hypothyroidism, unspecified; E78.5 Hyperlipidemia, unspecified; M10.9 Gout, unspecified; Z95.0 Presence of cardiac pacemaker; Z79.4 Long term (current) use of insulin
CPT/HCPCS: 84484-PO; 96374; 97116-GP; 97161-GP; 97166-GO; 97530-GP; 97535-GO; G8978-GP-CK; G8979-GP-CI; G8987-GO-CK; G8988-GO-CI; J0360; J1650; J1815; J2405

== ENCOUNTER 2018-05-03 10:46 | Emergency (ER) | payer OTHER ==
[2018-05-03 11:50] LABS: PLATELET COUNT 186 10^3/uL (150-400)
--- NOTE | 2018-05-03 12:09 | EDPHY ---
HPI/HX/ROS/PE/MDM Narrative: CHIEF COMPLAINT: Back pain and weight gain HISTORY OF PRESENT ILLNESS: The patient is a 77 y/o male with a history of a pacemaker, type 2 diabetes, and hypertension complaining of back pain and weight gain. Around 2 weeks ago he saw his PCP for weight gain, so she placed him on Lasix. Around one week ago he followed up with his PCP as his symptoms did not improve. Today the patient saw the PCP again and she advised that the patient present to the emergency room as he has gained 17 pounds in two weeks even while being on Lasix. Per his daughter, the patient has not been taking his medications as prescribed. 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 Last night the patient also forgot to use his supplemental oxygen at night. Currently he is complaining of back pain and feels like his abdomen is larger than normal. No fever, chills, chest pain, shortness of breath, palpitations, nausea, vomiting, diarrhea, urinary complaints, headache, lightheadedness. REVIEW OF SYSTEMS: Aside from elements discussed in the HPI, a comprehensive 10-system review of systems was reviewed and is negative. PAST MEDICAL HISTORY: Type 2 Diabetes, hernia with repair, bulging disk, gout, pacemaker, hypothyroid, hypertension SOCIAL HISTORY: Lives in [place], , retired VITAL SIGNS: Reviewed by me GENERAL: Well-developed, well-nourished, resting comfortably. HEENT: Atraumatic. Eyes: No icterus, no injection. Mouth: moist mucous membranes. No erythema or lesions. Neck: supple with no adenopathy. LUNGS: Slightly tachypneic, bilateral lower lobe rales, no wheezes or rhonchi. CARDIAC: Systolic flow murmur, regular rate and rhythm, no rubs or gallops. ABDOMEN: Soft, nontender, protuberant abdomen, bowel sounds normal. No fluid wave. BACK: No CVA tenderness. EXTREMITIES: No trauma. 1+ bilateral pitting edema to the knees. Range of motion is normal throughout. NEURO: Alert and oriented, grossly nonfocal. SKIN: Warm and dry, no rash. PSYCHIATRIC: Normal mentation, no agitation. Portions of this note were transcribed by a medical staff director. I personally performed a history, physical exam, medical decision making, and confirmed accuracy of information the transcribed note. ED Course: The patient is a 77 y/o male with a history of a pacemaker, type 2 diabetes, and hypertension presenting with back pain and weight gain. The patient's PCP sent the patient to the emergency department as he has gained 17 pounds in the last two weeks and has been noncompliant with his medications. On exam he has bilateral lower lobe crackles, slightly tachypneic, hypertensive, has a protuberant abdomen, and has 1+ bilateral pitting to his knees. Labs, EKG, chest x-ray ordered; 20mg IV Lasix administered. Patient does admit that he does not take his medications as directed and reports not taking any of his meds today. 1126: 12-LEAD EKG: Please see the full report in [employer]. My interpretation: Sinus rhythm with a rate of 70, RBBB, LVH with IVCD and secondary repolarization abnormality, borderline prolonged QT interval. 1220: I reviewed patient's chest x-ray which reveals no acute findings. Patient does have cardiomegaly. 1347: Patient's labs demonstrate no acute specific findings. Troponin is negative, BNP is normal, electrolytes are largely unremarkable. Patient's blood pressure has diminished with 20 mg of Lasix. I consulted with the case management regarding this patient. Case was discussed with the patient's primary care physician as well as the patient's daughter. Patient is noncompliant with his medications as mentioned above. Patient's primary care physician was reassured by the laboratory findings, chest x-ray, EKG. She will follow up with the patient regarding the importance of regular uses of his medications, encouraged him to potentially consider assisted living, and the daughter is also aware of the patient's issue with his medications and potentially in need to have more support at home. Reassessed patient and discussed laboratory and imaging studies. I did discuss admission to the hospital with the patient in order to treat his peripheral edema. He would strongly prefer to be discharged home.His blood pressure has decreased from 207/111 to 172/103. I have strongly encouraged him to take his medications as prescribed, including Lasix and supplemental O2, as well as following up with his PCP. Return precautions provided; patient is comfortable with this plan. MDM: Differential diagnosis for the patient's primary complaint of leg swelling was considered including but not limited to cellulitis, hypoalbuminemia, congestive heart failure, cor pulmonale, chronic venous stasis and DVT. - Data Points Imaging Results: Imaging Impressions Chest X-Ray 05/03/18 11:22 Impression: No acute abnormality. Imaging: I viewed and interpreted images myself Laboratory Results: Laboratory Results 05/03/18 10:55 05/03/18 10:55 05/03/18 05/03/18 05/03/18 12:19 10:55 10:55 WBC RBC Hgb Hct MCV MCH MCHC RDW Plt Count MPV Neut % (Auto) Lymph % (Auto) Johnson % (Auto) Eos % (Auto) Baso % (Auto) Nucleat RBC Rel Count Absolute Neuts (auto) Absolute Lymphs (auto) Absolute Monos (auto) Absolute Eos (auto) Absolute Basos (auto) Absolute Nucleated RBC Immature Gran % Immature Gran # Sodium 143 mEq/L mEq/L (135-145) Potassium 3.8 mEq/L mEq/L (3.3-5.0) Chloride 105 mEq/L mEq/L (97-110) Carbon Dioxide 27 mEq/l mEq/l (22-31) Anion Gap 11 mEq/L mEq/L (8-16) BUN 22 mg/dL mg/dL (7-23) Creatinine 1.0 mg/dL mg/dL (0.7-1.3) Estimated GFR > 60 Glucose 111 mg/dL H mg/dL (70-100) Calcium 9.8 mg/dL mg/dL (8.5-10.4) POC Troponin I 0.03 ng/mL ng/mL (0.00-0.08) Troponin I 0.020 ng/mL ng/mL (0.000-0.034) NT-Pro-B Natriuret Pep 237 pg/mL pg/mL (0-450) 05/03/18 10:55 WBC 7.75 10^3/uL 10^3/uL (3.80-9.50) RBC 6.08 10^6/uL 10^6/uL (4.40-6.38) Hgb 17.4 g/dL g/dL (13.7-17.5) Hct 52.8 % H % (40.0-51.0) MCV 86.8 fL fL (81.5-99.8) MCH 28.6 pg pg (27.9-34.1) MCHC 33.0 g/dL g/dL (32.4-36.7) RDW 13.7 % % (11.5-15.2) Plt Count 186 10^3/uL 10^3/uL (150-400) MPV 10.2 fL fL (8.7-11.7) Neut % (Auto) 54.6 % % (39.3-74.2) Lymph % (Auto) 29.4 % % (15.0-45.0) Johnson % (Auto) 11.6 % % (4.5-13.0) Eos % (Auto) 2.7 % % (0.6-7.6) Baso % (Auto) 1.4 % % (0.3-1.7) Nucleat RBC Rel Count 0.0 % % (0.0-0.2) Absolute Neuts (auto) 4.23 10^3/uL 10^3/uL (1.70-6.50) Absolute Lymphs (auto) 2.28 10^3/uL 10^3/uL (1.00-3.00) Absolute Monos (auto) 0.90 10^3/uL H 10^3/uL (0.30-0.80) Absolute Eos (auto) 0.21 10^3/uL 10^3/uL (0.03-0.40) Absolute Basos (auto) 0.11 10^3/uL H 10^3/uL (0.02-0.10) Absolute Nucleated RBC 0.00 10^3/uL 10^3/uL (0-0.01) Immature Gran % 0.3 % % (0.0-1.1) Immature Gran # 0.02 10^3/uL 10^3/uL (0.00-0.10) Sodium Potassium Chloride Carbon Dioxide Anion Gap BUN Creatinine Estimated GFR Glucose Calcium POC Troponin I Troponin I NT-Pro-B Natriuret Pep Medications Given: Discontinued Medications Furosemide (Lasix Injection) 20 mg IVP EDNOW ONE Stop: 05/03/18 12:20 Last Admin: 05/03/18 12:38 Dose: 20 mg Point of Care Test Results: Chemistry 05/03/18 12:19 POC Troponin I 0.03 ng/mL ng/mL (0.00-0.08) General Time Seen by Provider: 05/03/18 12:07 Initial Vital Signs: Initial Vital Signs Temperature (C) 36.7 C 05/03/18 10:53 Heart Rate 85 05/03/18 10:53 Respiratory Rate 26 H 05/03/18 10:53 Blood Pressure 207/111 H 05/03/18 10:53 O2 Sat (%) 90 L 05/03/18 10:53 O2 Delivery Mode Room Air O2 (L/minute) 2 Allergies/Adverse Reactions: No Known Allergies Allergy (Verified 07/25/17 19:09) Home Medications: Medication Instructions Recorded Allopurinol [Allopurinol 300 MG 300 mg PO DAILY 12/18/14 (RX)] Aspirin [Aspirin 81mg (*)] 81 mg PO DAILY 12/18/14 Cholecalciferol Vit D3 [Vitamin D3 2,000 units PO DAILY 12/18/14 (*)] Insulin Lispro [humALOG LISPRO 100 20 unit SC TIDMEAL 12/18/14 units/ml (*)] Levothyroxine [Synthroid 50 mcg 50 mcg PO DAILY06 12/18/14 (*)] Losartan/Hydrochlorothiazide 1 each PO DAILY 12/18/14 [Losartan-Hctz 100-25 mg Tab] Metoprolol Succinate Xr [Toprol Xl 200 mg PO DAILY 12/18/14 100 mg (*)] [place]-3 Ethyl Est-Lovaza [Lovaza 1 2 gm PO BID 12/18/14 gm (*)] Simvastatin [Zocor] 40 mg PO DAILY 12/18/14 Multivitamins [Multivitamin (*)] 1 each PO DAILY #30 tab 12/20/14 Insulin Glargine [Lantus 100 46 units SC BID 07/25/17 UNITS/ML (*)] Meclizine HCl [Meclizine HCl 25 mg 12.5 - 25 mg PO Q6 PRN tab 01/24/18 (RX,OTC)] amLODIPine BESYLATE [Norvasc 2.5 2.5 mg PO DAILY tab 01/24/18 mg (*)] Departure - Departure Disposition: Home, Routine, Self-Care Clinical Impression: Noncompliance with medication regimen, Shortness of breath, Peripheral edema Condition: Good Instructions: Leg Edema (ED) Additional Instructions: It is very important that you take your medications as directed. Please be sure you take your Lasix as directed. Please be sure you wear oxygen at night. Please follow up with your primary care physician within the next 3-4 days for re-evaluation. You have a follow up appointment with Dr. Hanley on May 08 at 9:00. This appointment will follow your previously scheduled PT appointment at 8:00 AM PLEASE take your medications as prescribed EVERY DAY Referrals: Mia Hanley MD [Primary Care Provider] - As per Instructions Report Scribed for: Felisha Jauregui Report Scribed by: Paula Valenzuela Date of Report: 05/03/18 Time of Report: 12:32
[2018-05-03] MEDS ORDERED: FUROSEMIDE 20 MG/2 ML VIAL IVP ONE (12:19)
[2018-05-03 14:39] VITALS: BP 172/103
--- NOTE | 2018-05-03 14:52 | ASMTCMCOM ---
CM Note CM Note Notes: Met with patient to discuss medication management and ongoing follow up care. see ER report for further details Patient lives independently at [facility] in [place]. He has 3 adult children that live in the [place] area. His daughter Nicole is more involved with his care than his other children and "she knows me best". He acknowledges that Nicole has been "getting on his case" about not taking his medication and/or "doing what he is supposed to be doing". Patient shares with me that he has someone from [facility] coming in twice a day to help him with his insulin dosing. I asked him if he might consider having them help him get in the routine of taking ALL his medications while they are coming "anyway". He states that he might consider that. I asked patient if he has thought about getting on any "lists" for FDC's and he admits that his kids (especially Nicole) have encouraged him to do this as well. I talked with patient about the importance of taking his medications on a regular basis, as well as the purpose of the individual medications he has been prescribed. We talked about the weight loss he has been concerned about and the benefit of taking his Lasix for this, and the decreased work load on his heart. Patient acknowledges that he needs to be better about taking all of his medications and has been "lazy" about this. I have reached out and spoken to Dr. Hanley about patient's visit and follow up care. She confirms awareness of patient's BID visits for his insulin dosing and will encourage following his medication dosing as well. She has made a referral to cardiology for patient to follow up with an ECHO and further cardiac evaluation. I have scheduled a follow up appointment for patient with Dr. Hanley next May 08 at 0900. I have LM with patient's daughter Nicole regarding patient's ER visit and encouraged her to call ER CM with any questions Date Signed: 05/03/2018 02:51 PM Electronically Signed By:Shona Chacko RN
--- NOTE | 2018-05-03 16:13 | CPEKG ---
Test Reason : OPEN Blood Pressure : / mmHG Vent. Rate : 070 BPM Atrial Rate : 070 BPM P-R Int : 210 ms QRS Dur : 157 ms QT Int : 448 ms P-R-T Axes : 038 -71 128 degrees QTc Int : 484 ms Sinus rhythm Right bundle branch block LVH with IVCD and secondary repol abnrm Borderline prolonged QT interval Confirmed by Felisha Jauregui ([id number]) on 05/03/2018 4:12:41 PM Referred By: Confirmed By:Felisha Jauregui
== END 2018-05-03 14:42 | disposition home or self-care (01) ==
LOC: EDUNIT#
DX: R60.9 Edema, unspecified (principal); Z91.14 Patient's other noncompliance with medication regimen; R06.02 Shortness of breath; I51.7 Cardiomegaly; E11.9 Type 2 diabetes mellitus without complications; I10 Essential (primary) hypertension; E03.9 Hypothyroidism, unspecified; M10.9 Gout, unspecified; Z95.0 Presence of cardiac pacemaker
CPT/HCPCS: 71046; 93005; 96374; 99285; J1940; 84484-PO

== ENCOUNTER → 2018-06-01 | Outpatient (CLI) | payer OTHER | LOC: BHFA 09:30 | PROVIDERS: ATTEND Internal Medicine Cardiovascular Disease | DX: R55 Syncope and collapse (principal); Z95.0 Presence of cardiac pacemaker ==